=== PATIENT | male | born 1975 | race Caucasian/White ===

== ENCOUNTER 2017-07-17 20:28 | Emergency (ER) | payer MEDICAID ==
--- NOTE | 2017-07-17 20:46 | EDPHY ---
H & P Time Seen by Provider: 07/17/17 20:44 HPI/ROS: CHIEF COMPLAINT: "I'm going through a crisis" HISTORY OF PRESENT ILLNESS: 41-year-old homeless male arrives via police on an M1 hold. Patient states that he is going through a"crisis". States that he has been experiencing suicidal ideation without plan as well as seeing aliens, hearing voices telling him to hurt himself. He denies attempted self-injury. Denies alcohol or drug use. Denies methamphetamine use. Denies trauma. Denies fall. PRIMARY CARE PROVIDER: REVIEW OF SYSTEMS: A ten point review of systems was performed and is negative with the exception of the items mentioned in the HPI PAST MEDICAL & SURGICAL HISTORY: Possible schizophrenia history SOCIAL HISTORY: Homeless denies alcohol or drug use. Denies methamphetamine use. PHYSICAL EXAM (Prior to examination, patient consented to physical exam, hands were washed and my usual and customary physical exam procedures followed) 1) GENERAL: poorly kept, foul-smelling,, alert and oriented. Appears to be in no acute distress. 2) HEAD: Normocephalic, atraumatic 3) HEENT: Pupils equal, round, reactive to light bilaterally. Sclera anicteric. 4) NECK: Full range of motion, no meningeal signs. 5) LUNGS: Clear auscultation bilaterally, no wheezes, no rhonchi, no retractions. 6) HEART: Regular rate and rhythm, no murmur, no heave, no gallop. 7) ABDOMEN: No guarding, no rebound, no focal tenderness, negative McBurney's, negative Thakur's, negative Rovsing's, negative peritoneal sign, 8) MUSCULOSKELETAL: Moving all extremities, no focal areas of tenderness, no obvious trauma. No peripheral edema or discoloration. 9) BACK: No CVA tenderness, no midline vertebral tenderness, no fluctuance, no step-off, no obvious trauma, no visual or palpable abnormality. 10) SKIN: No rash, no petechiae. 11) Psychiatric: Patient is oriented X 3, there is no agitation. DIFFERENTIAL DIAGNOSIS: In no particular include but limited to psychosis, navi, suicidal ideation, depression, homicidal ideation (Rubio,D Lucy) Constitutional: Initial Vital Signs Temperature (C) 37.0 C 07/17/17 20:49 Heart Rate 116 H 07/17/17 20:49 Respiratory Rate 20 07/17/17 20:49 Blood Pressure 116/87 H 07/17/17 20:49 O2 Sat (%) 98 07/17/17 20:49 O2 Delivery Mode Room Air Allergies/Adverse Reactions: No Known Allergies Allergy (Unverified 07/17/17 22:23) Home Medications: Medication Instructions Recorded Celexa 07/17/17 Risperdal 07/17/17 Ritalin 10mg (*) 07/17/17 Medical Decision Making ED Course/Re-evaluation: This patient was turned over to me at change of shift. This patient has been once again assessed by the psychiatric team including Dr. Steve teague. They have decided to drop the hold and discharge the patient. (Robb Crockett) 8:46 p.m.: Patient is on M1 hold. He is calm and cooperative at this time. 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 11pm : Care turned over to Dr. Ray Foss (Tete Bergeron) Other Provider: 2300 care assumed from RON Bergeron pending mental health evaluation. 0700 patient signed out to Dr. Crockett pending mental health evaluation. No issues during my care this patient overnight. (Navin Foss) - Data Points Laboratory Results: Laboratory Results 07/17/17 20:50 07/17/17 20:50 Departure - Departure Disposition: Home, Routine, Self-Care Clinical Impression: Acute psychosis Condition: Good Instructions: Psychotic Disorder (ED) Referrals: NONE *PRIMARY CARE P,. [Primary Care Provider] - As per Instructions
[2017-07-17 22:19] LABS: PLATELET COUNT 176 10^3/uL (150-400)
[2017-07-18 09:41] VITALS: BP 132/80
== END 2017-07-18 09:50 | disposition home or self-care (01) ==
DX: F23 Brief psychotic disorder (principal)
CPT/HCPCS: 80305; G0480

== ENCOUNTER 2017-07-21 20:02 | Emergency (ER) | payer MEDICAID ==
[2017-07-21] MEDS ORDERED: OLANZapine DISINTEGR 10 MG TAB PO ONE (20:17)
[2017-07-21 20:20] LABS: PLATELET COUNT 161 10^3/uL (150-400)
--- NOTE | 2017-07-21 20:32 | EDPHY ---
H & P Stated Complaint: M1 hold - Personal History Current Tetanus/Diphtheria Vaccine: Unsure Current Tetanus Diphtheria and Acellular Pertussis (TDAP): Unsure - Medical/Surgical History Hx Asthma: No Hx Chronic Respiratory Disease: No Hx Diabetes: No Hx Cardiac Disease: No Hx Renal Disease: No Hx Cirrhosis: No Hx Alcoholism: No Hx HIV/AIDS: No Hx Splenectomy or Spleen Trauma: No Other PMH: psych, denies other - Social History Smoking Status: Current every day smoker Time Seen by Provider: 07/21/17 20:05 HPI/ROS: CHIEF COMPLAINT: Patient has no complaints. He is requesting a shower, a meal , and bed. HISTORY OF PRESENT ILLNESS: This is a 41-year-old male with an apparent history of psychiatric disease (he tells me that he was admitted to [facility] earlier this year) who is brought to the emergency department on an M1 hold by the police. Reportedly he was walking into traffic and was also aggressive with a shopkeeper. This patient was evaluated here on July 18 and at that time it was not felt that he required inpatient treatment. When I speak with him he tells me that he calls the police frequently in an effort to obtain help with housing and meals. He denies suicidality, homicidality, visual or auditory hallucinations, navi, depression, and substance abuse. He admits to drinking occasionally. He smokes cigarettes. He was previously living in [place]. REVIEW OF SYSTEMS: A ten point review of systems was performed and is negative with the exception of the items mentioned in the HPI. Past medical history: Denies Past surgical history: Denies Social history: He is homeless. He smokes cigarettes daily, 1 pack per day. He drinks alcohol on occasion. He denies the use of illicit drugs. General Appearance: Alert. Vital signs reviewed. Heart rate 105 at triage. Disheveled, poor personal hygiene. Eyes: Pupils equal and round, no conjunctival injection, no discharge. Anicteric. ENT, Mouth: Mucous membranes are moist, no oropharyngeal erythema or edema. Neck: No lymphadenopathy. Respiratory: Lungs are clear to auscultation; no wheezes, rales, or rhonchi. Cardiovascular: Regular rate and rhythm. Not tachycardic at the time of my exam. Gastrointestinal: Abdomen is soft and nontender, no masses or organomegaly. Skin: Warm and dry, no rashes on exposed skin. Neurological: Alert and oriented but gives the month as May. Moving all four extremities easily and equally. PIETRO. Facial expression symmetric. Tongue midline. Psychiatric: Normal affect. (Zamzam Gallardo) Constitutional: Initial Vital Signs Temperature (C) 37.1 C 07/21/17 20:10 Heart Rate 105 H 07/21/17 20:10 Respiratory Rate 16 07/21/17 20:10 Blood Pressure 131/99 H 07/21/17 20:10 O2 Sat (%) 97 07/21/17 20:10 O2 Delivery Mode Room Air Allergies/Adverse Reactions: No Known Allergies Allergy (Unverified 07/21/17 20:06) Home Medications: Medication Instructions Recorded Celexa 07/17/17 Risperdal 07/17/17 Ritalin 10mg (*) 07/17/17 Medical Decision Making ED Course/Re-evaluation: 0111: Patient has been evaluated by mental health. They do not feel that he is a threat to himself or anybody else. He is not suicidal homicidal. Did not feel that he would benefit from inpatient psychiatric hospitalization however they are requesting that we keep him here tonight in the emergency room and be discharged safely in the morning. (Rafat Cobos) 41-year-old homeless male with an apparent history of psychiatric disease. He tells me that he he has had a psychiatric hospitalization. His medical records indicate that he has been prescribed Celexa and Risperdal, which he states he does not take. At the time of my evaluation he denies suicidality or homicidality. He states that he is not having visual or auditory hallucinations. He expresses a desire for shower, a meal, and a place to sleep. Although I think that he likely does have psychiatric illness, he appears to be malingering. Blood alcohol is 0.124. Will await sobriety and TLC evaluation. (Zamzam Gallardo) Differential Diagnosis: I considered a differential diagnosis that includes but is not limited to malingering, psychosis, depression, suicidality, and homicidality. (Zamzam Gallardo) - Data Points Laboratory Results: Laboratory Results 07/21/17 20:10 07/21/17 20:10 07/21/17 20:10 Sodium 143 mEq/L mEq/L (135-145) Potassium 4.1 mEq/L mEq/L (3.3-5.0) Chloride 106 mEq/L mEq/L (97-110) Carbon Dioxide 21 mEq/l L mEq/l (22-31) Anion Gap 16 mEq/L mEq/L (8-16) BUN 9 mg/dL mg/dL (7-23) Creatinine 0.8 mg/dL mg/dL (0.7-1.3) Estimated GFR > 60 Glucose 95 mg/dL mg/dL (70-100) Calcium 9.1 mg/dL mg/dL (8.5-10.4) Ethyl Alcohol 124 mg/dL H mg/dL (0-10) Medications Given: Discontinued Medications Olanzapine (Zyprexa Zydis) 10 mg PO EDNOW ONE Stop: 07/21/17 20:18 Last Admin: 07/21/17 22:51 Dose: Not Given Departure - Departure Disposition: Home, Routine, Self-Care Clinical Impression: Homelessness Alcohol intoxication Qualifiers: Complication of substance-induced condition: uncomplicated Qualified Code(s): F10.920 - Alcohol use, unspecified with intoxication, uncomplicated Condition: Good Instructions: Alcohol Intoxication (ED), Abuse of Alcohol (ED) Referrals: NONE *PRIMARY CARE P,. [Primary Care Provider] - As per Instructions
[2017-07-22 05:50] VITALS: BP 143/74
== END 2017-07-22 05:53 | disposition home or self-care (01) ==
DX: F10.920 Alcohol use, unspecified with intoxication, uncomplicated (principal); F17.210 Nicotine dependence, cigarettes, uncomplicated; Z59.0 Homelessness
CPT/HCPCS: 80305; G0480

== ENCOUNTER 2017-08-31 18:10 | Inpatient (IN) | payer MEDICAID, OTHER ==
--- NOTE | 2017-08-31 18:24 | EDPHY ---
H & P Smoking Status: Current every day smoker Time Seen by Provider: 08/31/17 18:23 HPI/ROS: CHIEF COMPLAINT: Hearing voices, on M1 hold HISTORY OF PRESENT ILLNESS: Patient arrives on M1 hold by police. He told them that he was hearing voices telling them that he is the Governor, and the police radios block voices. He was suicidal to the police but denies it to me. He told him he was going to"set himself on fire."The patient to me continues to talk about aliens chasing him and voices in his head chasing him around. Patient denies any acute medical complaints REVIEW OF SYSTEMS: Eye: no change in vision ENT: no sore throat Cardiac: no chest pain or syncope Pulmonary: no cough or SOB Abdomen: no vomiting, diarrhea, abdominal pain Musculoskeletal: no back pain Skin: no rash Neuro: no headache Constitutional: no fever : no urinary symptoms A comprehensive 10 point review of systems is otherwise negative aside from elements mentioned in the history of present illness. PAST MEDICAL HISTORY: Previous ED visits for psychotic disorder, diagnosis unclear Social history: Alcohol and tobacco user General Appearance: Alert and conversant, cooperative. Eyes: No scleral icterus. ENT, Mouth: Normal mucous membranes. Respiratory: Normal respiratory effort, breath sounds equal, lungs are clear to auscultation. Cardiovascular: Regular rate and rhythm. Gastrointestinal: Abdomen is soft and non tender. Neurological: Alert, face symmetric, normal motor and sensory in extremities. Skin: Warm and dry, no rashes. Musculoskeletal: No peripheral edema. Psychiatric: The patient is rambling thoughts and is delusional about hearing voices and that he is the Governor. Denies suicidal or homicidal ideation. Emergency Department course/MDM: On a psychiatric hold by police. Screening labs ethanol and mental health evaluation. 1949: Drug screen is amphetamine positive. Will likely be eligible for evaluation tomorrow morning at 6:20 a.m. Tomorrow. Signed out to Dr. Whiting at 2100 with plan as outlined above. (Jordan Valencia) Constitutional: Initial Vital Signs Temperature (C) 36.8 C 08/31/17 18:14 Heart Rate 81 08/31/17 18:14 Respiratory Rate 16 08/31/17 18:14 Blood Pressure 138/83 H 08/31/17 18:14 O2 Sat (%) 97 08/31/17 18:14 O2 Delivery Mode Room Air Allergies/Adverse Reactions: No Known Allergies Allergy (Unverified 08/31/17 18:14) Home Medications: Medication Instructions Recorded NK [No Known Home Meds] 09/01/17 Medical Decision Making Differential Diagnosis: Differential considered including but not limited to schizophrenia, bipolar disorder, alcohol or drug intoxication, metabolic problem (Jordan Valencia) Other Provider: 6:36 a.m.- The patient has been stable throughout my shift. He is awaiting psychiatric evaluation which is delayed because of his urine toxicology positive for amphetamines. He will be signed out to the oncoming provider Dr. Adamson at change of shift (Mignon Pearce) Patient has been accepted for transfer to by Dr. Jorge. (Tod Diego) 11:00 p.m. Care transferred to Dr. Pearce, pending evaluation in the morning. ( Chandra Whiting) I assumed care of this patient at 7:[address] Pearce. Patient had a urine tox which was positive for methamphetamines at 6:00 p.m. on August 31. He will be evaluated this morning by [facility]. Rohan from [facility] has evaluated patient, and recommended the patient be admitted to the hospital. Patient has previously been treated with Zyprexa for psychosis. 10 mg of Zyprexa was administered. Patient was admitted to [address] [place] [address]. (Maki Adamson) - Data Points Laboratory Results: Laboratory Results 08/31/17 18:34 08/31/17 18:34 Medications Given: Olanzapine (Zyprexa Zydis) 10 mg PO [facility] Stop: 02/28/18 20:59 Last Admin: 09/02/17 21:41 Dose: 10 mg Discontinued Medications Olanzapine (Olanzapine) 20 mg PO ONCE ONE Stop: 09/01/17 11:31 Last Admin: 09/01/17 11:59 Dose: Not Given Olanzapine (Olanzapine) 10 mg PO ONCE ONE Stop: 09/01/17 11:32 Last Admin: 09/01/17 11:44 Dose: 10 mg Departure - Departure Disposition: [facility] IP Clinical Impression: Acute psychosis, Amphetamine abuse Condition: Good
[2017-08-31 18:48] LABS: PLATELET COUNT 176 10^3/uL (150-400)
[2017-09-01] MEDS ORDERED: OLANZapine 5 MG TAB PO ONE ×2 (11:30→11:31)
--- NOTE | 2017-09-01 15:06 | ASMTTCLDSP ---
TLC Discharge Disposition Disposition: Answers: Admit Discharge Concerns/Recommendations: Notes: In consultation with [facility] ED physician, Jordan Valencia MD, and on-call psychiatrist, Jovon Jorge MD, both concurred that pt appeared to meet 27-65 criteria requiring psychiatric hospitalization as pt appears does appear to be an imminent risk of harm to self and is gravely disabled due to a mental illness condition. Was patient given the Answers: Yes Inpatient Behavioral Health Prohibited Belongings List while in the ED? For inpatient Jovon Jorge MD admission, the following psychiatrist agreed to accept patient for admission to Behavioral Health ([facility]): Date and time M1 hold 08/31/2017 05:17 PM vacated (time format is hh:mm): Type of Hold: Answers: M1/72-hour Hold Hold initiated by: Answers: Police Date Signed: 09/01/2017 03:05 PM Electronically Signed By:Tod Black
--- NOTE | 2017-09-01 15:39 | ASMTTLCEVL ---
TLC Evaluation - Basic Information Evaluation Start Date and 09/01/2017 02:00 PM Time Hospital Status Answers: M1 Hold 72-hr M1 Hold Start Date 08/31/2017 05:17 PM and Time Patient statement Notes: "Trying to get away from people...pointing laser pointers at my crotch". Pt reported that his persuers were child molesters. 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 Narrative Notes: Pt is a 41 YO male, never , no children, unemployed Per [facility] report the PT called 911 yesterday reporting suicidal thoughts; Pt is a very poor historian, primarily tue to lose associations and his preoccupation with paranoid and grandiose delusions. Pt says he came to [place] 1 week ago from [place] "trying to get away from people" who pt says " were pointing laser pointers at my crotch". Pt reported that his pursuers were child molesters. 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 Pt says he's not sleeping very well b/c "They're trying to keep me awake using x-band radar" and says "they" follow pt around in "in an SUV like spaceship". Pt says he's anti-christain, "I don't do the Festus thing. I'm anti-Cy." Per ED report HISTORY OF PRESENT ILLNESS: Patient arrives on M1 hold by police. He told them that he was hearing voices telling them that he is the Governor, and the police radios block voices. He was suicidal to the police but denies it to me. He told him he was going to"set himself on fire."The patient to me continues to talk about aliens chasing him and voices in his head chasing him around. The patient is rambling thoughts and is delusional about hearing voices and that he is the [place]. Denies suicidal or homicidal ideation. The pts urine toxicology positive for amphetamines. Per M1 Hold R/O responded to gas station at [place] for male ([place]) who was suicidal, wanted to set himself on fire. Remington stated that he hears multiple voices and that he is the governor. Remington stated that the police radios block the voices in his head. Remington stated that he is suicidal and needs help. Diagnosis History Notes: SCHIZOPHRENIA 295.90 (F20.9) - From [facility] 2016 Prior suicide attempts Notes: PT reports 2 or 3 attempts Prior hospitalizations Notes: [facility] 2016 (Observation Area for 3 days) [facility] October 2016 [facility] Responses Notes: Per [facility] records from 2016 stay. Pt was given 20mg of zyprexa a day and stabilized. History of violence Notes: None reported Therapist: None Psychiatrist: None Medications (name, dosage, route, freq uency) Notes: Pt reported he is has been perscribed ritalin and celexa but doestn' have current perscriptions Per [facility] records from 2016 stay. Pt was given 20mg of zyprexa a day and stabilized. Allergies/Reaction Notes: No Known Allergies Sleep Notes: Poor Appetite Notes: Poor Medical/Surgical history Notes: None reported Substance use history (frequency, intensity, his tory, duration) Notes: Unable to assess substance use due to pt's psychosis - previous [facility] admission was negative for cocaine or amphetamine but was positive for etoh; previous [facility] admission had pt possitive for cocaine; current [facility] ED visit pt is positive for Amphetamine in utox; Family composition Notes: None reported; I wasn't raised by anyone; pt denied having any siblings Family psychiatric/substance abuse history Notes: ETOH Abuse on mothers side, drank while . 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 Abuse concerns Answers: Past Victim Marital status/children Notes: Never with no children Living situation Notes: Transient / Homeless Sexual history/orientation Notes: Heterosexual not sexually active Peer support/family strengths Notes: None reported, pt has had successful treatment with zyprexa. Education level/history Notes: Pt repored he never attended school. Work history Notes: Unemployed Notes: None reported Legal Notes: None reported Anglican/Spiritual Notes: Pt denied being spiritual or religous Leisure Notes: I like BBQ Collateral Notes: Obtained from [facility] report (See Fax attached), ED records, and M1 Hold TLC Evaluation - Mental Status Exam Appearance: Answers: Unkempt Disheveled Eye Contact: Answers: Intermittent Mood: Answers: Depressed Affect: Answers: Appropriate Blunted Calm Distracted Fearful Behavior: Answers: Appropriate Cooperative Speech: Answers: Relevant Irrelevant Illogical Clear Coherent Dramatic Excessive Flight of Ideas Grandiose Loose Associations Nonsensical Rambling Thought Process: Answers: Disorganized Disoriented Distracted Flight of Ideas Loose Associations Paranoid Insight: Answers: Poor Judgement: Answers: Poor Manic Signs/Symptoms Answers: Distractibility Impulsivity Mood Swings Pressured Speech Racing Thoughts Depression Answers: Flat Affect Signs/Symptoms: Hopelessness Withdrawn Hallucinations: Answers: Auditory Command Delusions: Answers: Being Controlled Erotic/Stalking Grandiose Ideas of Reference Paranoid Ideation Persecution Anglican/Spiritual Current Stage of Change Answers: Precontemplation Pt reported to have Answers: Yes suicidal/self-injuring ideation/behavior? Pt reported to be making Answers: Yes suicidal/self-injuring threats? Pt reported to have Answers: No aggression/assault ideation/behavior? Pt reported to be making Answers: No aggression/assault threats? Ideation/behavior is Answers: Yes chronic? Patient has a specific Answers: Yes plan? Pt has access to means to Answers: Yes execute the plan? Ideation involves Answers: Yes serious/lethal intent? Ideation has Answers: Yes delusional/hallucinatory content? History of Answers: No aggressive/assaultive ideation, behavior, or threats? History of serious Answers: No physical harm to self/others while in treatment setting? TLC Evaluation - Suicide/Homicide Risk Suicide Risk Factors: Answers: Agitation Alcohol/Heavy Drug Use Command Hallucinations Impulsivity Lack/Loss of Employment Psychotic Disorder Schizophrenia Single Unstable Living Situation Homicide/violence risk Answers: Command Hallucinations factors: Heavy Drug Use Paranoid Ideation Current Suicidal Answers: Yes Ideation? Current Suicidal Ideation Answers: Yes in the Past 48 Hours? Current Suicidal Ideation Answers: Yes in the Past Month? Suicide External Answers: None Protective Factors: Ranking of patient's Answers: Imminent suicidal risk: Ranking of patient's Answers: Low homicidal risk: TLC Evaluation - Wrap-up BDI Total Score: Unable to complete BSS Total Score: Unable to complete AXIS I Diagnosis (include DSM-V and ICD-10 codes), must also be entered in [employer], which is the source of truth. Notes: SCHIZOPHRENIA 295.90 (F20.9) Evaluation End Date and 09/01/2017 03:33 PM Time (HH:MM): Date Signed: 09/01/2017 03:38 PM Electronically Signed By:Tod Black
[2017-09-01] MEDS ORDERED: MAG HYDROX/AL HYDROX/SIMETH 30 ML UDCUP PO PRN (19:49)
[2017-09-01] MEDS ORDERED: LORazepam 1 MG TAB PO PRN (19:49)
[2017-09-01] MEDS ORDERED: MAGNESIUM HYDROXIDE 30 ML UDCUP PO PRN (19:49)
[2017-09-01] MEDS ORDERED: NICOTINE POLACRILEX 2 MG GUM B PRN (19:49)
[2017-09-01] MEDS ORDERED: ACETAMINOPHEN 325 MG TAB PO PRN (19:49)
[2017-09-01] MEDS: OLANZapine DISINTEGR 10 MG TAB PO SCH (20:31)
--- NOTE | 2017-09-02 14:00 | ASMTBHMTP ---
Master Treatment Plan Master Treatment Plan Answers: Impaired Reality for: Date: 09/02/2017 Diagnosis on Admission: Schizophrenia Expected length of stay: 3-5 Days Reason for admission: Notes: 41 year old male. Per [facility] report the pt. called 911 yesterday reporting suicidal thoughts. Patient's stated presenting problems: Notes: Don't know. Having mental problems Patient's goals for treatment: Notes: I don't know Patient's strengths: Notes: I don't know Identify supports outside of hospital: Notes: No Discharge criteria: Notes: Psychotic symptoms will be reduced or eliminated with return to baseline functioning in affect, thinking and behavior prior to discharge Initial disposition plan/considerations: Notes: I don't know. Master Treatment Plan Required Signatures Psychiatrist signature: Answers: Angel Ventura MD: RN on-shift signature: Answers: RN: Patient signature: Answers: Patient: Date Signed: 09/02/2017 01:59 PM Electronically Signed By:Guerda Bridges
[2017-09-02] MEDS ORDERED: OLANZapine 5 MG TAB PO PRN (14:01)
--- NOTE | 2017-09-02 14:42 | BAPA ---
[f rep st] ADMISSION PSYCHIATRIC ASSESSMENT DATE OF SERVICE: 09/02/2017 CHIEF COMPLAINT: "Trying to get away from people pointing lasers at my crotch." HISTORY OF PRESENT ILLNESS: The patient is a 41-year-old, man, never , no children, unemployed. According to [facility], who did the initial evaluation in the emergency department, the ana nt called 911 reporting suicidal thoughts. He was placed on an M-1 hold by police at a gas station o n [place], because he stated that he was hearing multiple voices and that he was the govern or. He also states that he was having suicidal thoughts with a plan to set himself on fire and neede d help. The patient came to [place] a week ago from [place], said he was, "trying to get away from pe ople." He said that the people who were pursuing him were child molesters. 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 When this MD met with the patient on the Inpatient Behavioral Health Services Unit along with t healthcare management, Guerda, the patient was lying in bed, extremely disheveled, malodorous, ill-kempt . He was wearing hospital scrubs, top and bottom. He was wrapped up in his sheets. He was extremel y irritable, labile. The patient became very agitated when he was addressed by his first name, Juan Diego morgan. He said that his name was [place]. When MD asked whether that was his first or last name, patient became quite volatile and angry and said "I'm just one person, I only have one name." When attem pted to ask the patient questions about his medical and mental health history, the patient repeated o agatha and over again, "I don't know, I don't know." The patient was a very unreliable historian, not f orthcoming with any details or information about his prior psychiatric care or his recent psychiatric symptoms. PAST MEDICAL HISTORY: The patient was at [facility] in September of 2016, also at [facility] in Oct, and at [facility] unknown time frame, but according to records from [facility], the patien t has not been hospitalized since 2017. The records also indicate the patient has made suicide attem pts in the past, but given the fact that he is unreliable historian, it is unclear whether or not to believe his report, and there were no medical records to verify this. In the past, the patient has b een on Zyprexa. Records from [facility] indicate that he was prescribed 20 mg Zyprexa daily. The patient has not been compliant with medications when he is not in the hospital. The patient reports that he has taken Ritalin and Celexa in the past, but there is no external evidence of this or sarah boration from medical records. ALLERGIES: The patient has no known drug allergies. CURRENT MEDICATIONS: The patient is not currently taking any medications because he has not been com pliant with outpatient care. It is believed that the last time he received any psychotropic medicati ons was while he was inpatient at [facility] and that was Zyprexa 20 mg daily in September of 2016. LABORATORY: Was done at [facility] ED. The patient had a white cell count of 4.76, hemoglobin 15.2, hematocrit 44.6, platelet count of 176. Sodium of 140, potassium 3.0, BUN of 6, creatinine 0.7, gluc ose 71, calcium 8.8. Tox screen was positive for amphetamines, negative for all other drugs of abuse . Salicylate and acetaminophen levels were both undetected. Ethyl alcohol level was less than 10. MEDICAL HISTORY: None reported. No prior surgeries were noted by the patient or in the [facility] eval. SOCIAL HISTORY: The patient is homeless, never , has no children. The patient is an unreliab le historian when it comes to personal information. He told the [facility] sewing machines salesperson that he had never atte nded school before, which seems unlikely. He also reports that he has previously been diagnosed with ADHD. The patient is not currently connected with any outpatient providers. There is no informatio n about family support or any type of social support system. FAMILY HISTORY: The patient did report that his mother was an alcoholic and drank while she was preg nant. No other information about family psychiatric history or any other substance abuse history in the family. SUBSTANCE USE HISTORY: A urine drug screen has shown up positive for multiple substances during diff erent hospitalizations. During this hospitalization, the patient was positive for amphetamine. [facility] r eport indicates that when he was admitted to [facility] in September of 2016, his urine drug screen w as negative for amphetamine, but was positive for alcohol. When he was admitted to [facility] in Oct, he was positive for cocaine and according to [facility] records, the patient has a history o f using marijuana. LEGAL HISTORY: The patient denies having any legal issues. MENTAL STATUS EXAM: This is an average height, well-developed, extremely disheveled, ill-kempt, jean carlos dorous man lying in bed, wearing hospital scrubs. He is alert and oriented x2. His affect is extrem arlen irritable and labile. His demeanor is argumentative. He does not make eye contact with the MD o r healthcare management. His speech rate is rapid and his volume is elevated. He denies feeling sad, hel pless, hopeless, worthless, and anxious. He denies any symptoms of psychosis, although he presents w ith paranoid delusions, extreme disorganized thought process. There are no symptoms of navi present . He does not have elevated or elated mood. He does not have increase in goal-directed activity or decreased need for sleep. He does not have racing thoughts. His thought process is disorganized and illogical. His insight and judgment are both significantly impaired. His intellectual function mendel ears to be below average, based upon his vocabulary, fund of knowledge, and educational history. IMPRESSION: 1. Schizophrenia by history. 2. Amphetamine use disorder, severe. 3. Alcohol use disorder, unknown severity. 4. Cannabis use disorder, unknown severity. 5. Cocaine use disorder, unknown severity. 6. Lack of social support, homelessness, transients, noncompliance with treatment, chronic polysubst ance use, financial, unemployed. PLAN: 1. Admit patient to the inpatient behavioral health services unit on [address] on an M-1 hold. 2. Monitor closely for safety. The patient is not currently exhibiting any unsafe behaviors. He is acting appropriately other than some infrequent outbursts. He denies any thoughts, plans, or intent s to hurt himself or anyone else. He is paranoid. 3. We will continue to monitor and observe the patient. It is possible that his acute psychotic sym ptoms are primarily related to amphetamine use disorder. We will treat the patient with Zyprexa, Zyd is 10 mg p.o. q.h.s., and hope that his lack of access to mood altering and psychosis-inducing substa nces while in a controlled environment will lead to remission of symptoms. 4. The patient has taken Zyprexa during his previous hospitalization at [facility] to good effect . We will continue this medication here. 5. Estimated length of stay is 3-5 days. It seems like in the past, the patient has been receiving his services only in the hospital and has not been connected with outpatient providers, although we w ill try to obtain collateral information and see whether or not he has been a client at [facility] or any o f the other community mental health clinics in the area. He will need to get connected with some pro viders after this discharge, although the likelihood of him following through with treatment is very low, based upon his previous behaviors. We will try to encourage him to access services wherever he will be residing, and a healthcare management will help to assist in getting him connected with housing reading hospital. /[id number]/MODL
--- NOTE | 2017-09-02 16:08 | BCON ---
[f rep st] BEHAVIORAL HEALTH CONSULTATION DATE OF CONSULTATION: 09/02/2017 REFERRING PHYSICIAN: Jovon Jorge MD REASON FOR REFERRAL: Medical clearance for inpatient behavioral health stay. HISTORY OF PRESENT ILLNESS: This patient was brought to the emergency department 2 days ago on an M1 hold by police. He had told police that he was hearing voices, telling him that he is the governor, and he had other delusions that he expressed. He told the police that he was suicidal and was going to set himself on fire. He was evaluated by the mental health team and admitted for further psychiatric care. Currently, he complains "every time I go sleep, they wake me up." He is otherwise without acute complaints, but he asks if it is dinnertime or snack time. PAST MEDICAL HISTORY: Schizophrenia. PAST SURGICAL HISTORY: He denies any history of surgeries. MEDICATIONS: Prior to admission, he was not taking any medications, though apparently there was a prior prescription for olanzapine. SOCIAL HISTORY: He is a smoker. He is a polysubstance abuser with documented use in the past of cocaine, as well as methamphetamine. He is homeless. FAMILY HISTORY: Could not be obtained. REVIEW OF SYSTEMS: Limited due to mild agitation. He denies cough or dyspnea. He is not in pain. PHYSICAL EXAM: VITAL SIGNS: Blood pressure is 113/69, heart rate is 67, respiratory rate is 14, oxygen saturation is 98% on room air, temperature is 36.4 degrees centigrade. His weight is 67.6 kg for a body mass index of 22. GENERAL: This is a well-nourished, well-developed, but unkempt and malodorous individual, dressed in a green hospital smock, agitated, but otherwise moderately cooperative and in no acute distress. HEENT: Extraocular movements are intact. Mucous membranes are moist. NECK: Supple. CARDIOVASCULAR/LUNGS: Could not be accomplished though he is not tachypneic. There are no retractions and he is not coughing. ABDOMEN: Grossly benign. EXTREMITIES: There is no cyanosis, clubbing, or edema. NEUROLOGIC: He is alert. He is agitated. Orientation was not checked. He moves all extremities. Cranial nerves 2-12 appear to be grossly intact. His gait is normal. He makes a sudden stop while walking and raises his arms in a motion as if to push someone away, though there is no one in front of him, and says "whoa." LABORATORY STUDIES: Drawn in the emergency department. CBC was overall normal. He had a slightly high mean platelet volume of no clinical significance. Basic metabolic profile showed a low potassium at 3, BUN was also low at 6. Otherwise, renal function and electrolytes were normal. Toxicology screen in the serum was negative for salicylates, acetaminophen, or ethyl alcohol. Toxicology in the screen was non-negative for amphetamines, but was otherwise negative for substances of abuse. ASSESSMENT/RECOMMENDATIONS: 1. Mental health issues pending further evaluation and management per Psychiatry and the mental health team. 2. Tobacco dependence. He was encouraged to stop smoking. 3. Hypokalemia. Query whether this might have to do with a hyperadrenergic state. It was mild. If he shows normal oral food and fluid intake, I doubt that there is a need to repeat the blood test and I will not order this at present. 4. Amphetamine abuse. He might benefit from specific substance abuse counseling. I see no medical contraindications to this patient's continued stay on the inpatient behavioral health unit or to any psychiatric medications or procedures. Thank you very much for including me in the care of this patient. Please do not hesitate to contact me or the Hospitalist service should there be need for further medical evaluation. /[id number]/MODL MTDD
--- NOTE | 2017-09-02 16:17 | PDMN ---
Medical Necessity Medical necessity: Pt meets IP criteria per & OTONIEL B010-IP; est los >2 mn for eval/tx of acute psychotic symptoms r/t amphetamine use; pt on M1 hold; admit for safety, stabilization & med management; hx schizophrenia, homelessness & polysubstance abuse
[2017-09-02] MEDS: OLANZapine DISINTEGR 10 MG TAB PO SCH (21:41)
--- NOTE | 2017-09-03 13:45 | ASMTCMCOM ---
CM Note CM Note Notes: Pt. was laying in bed with his eyes open when CC approached. Pt. stated "I don't know" when asked how he was doing. Pt. stated he keeps getting woken up by staff. Pt. stated "what are you stupid?" to CC. When CC asked about SI, pt. stated "I don't know you just woke me up". CC ended conversation due to pt. demeanor. Pt. presents as disorganized and malodorous. Staff report pt. sleeping at least 12 hours and being medication compliant. Date Signed: 09/03/2017 01:44 PM Electronically Signed By:Guerda Bridges
--- NOTE | 2017-09-03 16:42 | SOAPPROG ---
SOAP Progress Note Assessment/Plan: Assessment: 41 yo man with h/o schizophrenia and polysubstance dependence. It's likely that his psychotic sxs are caused or significantly exacerbated by his drug use. In controlled environment he has not exhibited the same severity of sxs that led to his contact with police and transfer to ED on 09/01/17. Plan: 09/03/17 16:39 1. Patient still irritable and refusing to participate in tx, but no s/s of acute psychotic sxs (paranoia and delusions) prior to admission. 2. Patient slept 12+ hrs last night and this AM. He only came out of room for meals. 3. Continue Olanzapine 10mg QHS for psychotic sxs & mood stabilization. Patient denies any SE's, no evidence of slowing, rigidity or abnormal movements. 4. Place on [facility]. Subjective: Met with patient, reviewed chart and d/w staff. Patient remains in room most of the day. He slept 12 hrs overnight and has been asleep almost all morning. He left his room for breakfast and lunch only. He refuses to participate in any groups or milieu activities. He denies SI/HI. Objective: Vital Signs Temp Pulse Resp BP Pulse Ox 36.4 C 68 16 118/80 96 09/03/17 06:00 09/03/17 06:00 09/03/17 06:00 09/03/17 06:00 09/03/17 06:00 MSE: Affect: Irritable Mood: "OK" TP: Linear TC: Denies SI/HI, no AH/VH Insight/Judgment: Poor - Time Spent With Patient Time Spent With Patient: 15" - Pending Discharge Pending Discharge Within 24 Hours: No Pending Discharge Within 48 Hours: No ICD10 Worksheet Patient Problems: Problems Problem Status Onset Acute psychosis Acute Amphetamine abuse Acute
[2017-09-03] MEDS: OLANZapine DISINTEGR 10 MG TAB PO SCH (21:26)
--- NOTE | 2017-09-04 15:39 | SOAPPROG ---
SOAP Progress Note Assessment/Plan: Assessment: Unspecified psychosis. Substance-induced psychosis. Unable to currently determine if patient has underlying psychiatric disorder due to recent methamphetamine use. Compared to initial admission notes, slight improvement noted; less disorganized (see subjective/objective note). Patient is not safe to discharge at this time as patient continues to exhibit signs of psychosis. Patient requires continued inpatient care because of current psychosis, and requires inpatient level of care due to being gravely disabled due to mental illness. Patient could benefit from continued inpatient hospitalization for crisis stabilization, safety, and medication evaluation. Plan: Review psychotropic medication treatment informed consent and recommendations. After reviewing options, risk and benefits, patient agrees to continue current medications with the following changes. No medication changes at this time as more time is needed to determine ongoing tolerability and efficacy. Plan is to continue to observe patient for response and side effects from medications, and ongoing monitoring and evaluation. Next steps are for patient to meet with direct care professional to plan a safe discharge plan and establish outpatient services for ongoing treatment. Consider discharge Monday if patient is in stable condition, safe, and has a safe discharge plan. PSYCHOTROPIC MEDICATION TREATMENT INFORMED CONSENT and RECOMMENDATIONS: Review nature of condition, diagnosis, and prognosis. Review nature and purpose of psychotropic medication treatment. Review type of psychotropic medications being ordered. Review risk and benefits of psychotropic medication treatment. Review probable length of time patient will need to take medications. Review risk and benefits of not undergoing psychotropic medication treatment. Review alternative treatments to psychotropic medications. Review psychotropic medications contraindications, drug-drug interactions, side effects, and importance of reporting any side effects to a psychiatric provider or nurse during inpatient hospitalization, and upon discharge to patients psychiatric outpatient provider, primary care provider, or other health respiratory care assistant. Review importance of asking a nurse, psychiatric provider, or primary care provider any questions or problems concerning the psychotropic medications. Verify patient understands the information that has been provided, and understands, accepts, and agrees to psychotropic medications. Review patients safety plan and importance of patient to report to staff while hospitalized if patient is ever a danger to self/others, or unable to care for self, and upon discharge, the importance for patient to contact [facility] [place] [facility] or 1, or go to the nearest emergency room, if patient is ever a danger to self/others, or unable to care for self. Recommend that upon discharge patient establish medication management treatment with a psychiatric provider, establishes routine therapy appointments, and follow-up with primary care provider. Verify patient understands and agrees to these recommendations. 09/04/17 15:46 Subjective: Following up with patient for evaluation of psychosis and safety. When asked patient if he has improved since admission, patient states, "Yep, just trying to get some rest." Patient expresses no current psychiatric symptoms. Patient states he might take a shower later today. Objective: Vital Signs Temp Pulse Resp BP Pulse Ox 36.7 C 51 L 16 116/72 97 09/04/17 06:00 09/04/17 06:00 09/04/17 06:00 09/04/17 06:00 09/04/17 06:00 NURSING REPORT: Consulted with nursing for update on patients progress in treatment. Nurses report patient is not engaged in treatment, is not attending groups, slept 12 hours last night and has been in room most of the day sleeping , expresses the following psychiatric symptoms: none, exhibits the following psychiatric symptoms: disorganized, withdrawn, diminished emotional expression, is eating all meals, is taking medications as prescribed with no report of side effects, with no S/S of EPS/akathisia, and denies SI/HI, A/V hallucinations. Nurses report patient has not showered since admission. [employer] UPDATE: working on setting-up outpatient appointments with P and referrals to homeless shelters in surrounding area UPDATE: Patient has spent majority of the day in his room sleeping; potentially withdrawal from recent methamphetamine use. Patient is not attending to all ADLsnotably has not bathed/showered since his admission. The patient is a well-nourished male looking older than chronological age. Attire is appropriate and dress is hospital garb, and is disheveled. Grooming status is inappropriate and disheveled, and malodorous. Ambulation is independent. Gait is normal and coordinated. Posture is normal. Eye contact is inappropriate and avoidant. Motor activity is appropriate. Attitude is uncooperative. Patient appears disinterested, irritated by interview questions, and does not relate well to this interviewer. Language production is unspontaneous. Rate is hesitant. Latency of response is prolonged. Monosyllabic responses. Patient reports mood as okay euthymic, with constricted incongruent diminished emotional affect. Patients thought process is non-linear and illogical. Patient does not report suicidal/homicidal thoughts, ideas, or plans. Patient denies auditory, visual hallucinations. Patient denies delusions. Patient does not appear to be attending to internal stimuli. Patients attention and concentration are poor. Patient is oriented to person, place, time. Patients insight is poor. Patients judgment is poor. Patient reports taking medications as prescribed. Patient does not report undesirable side effects from the medications. Patient slept 12 hours and has been in his room sleeping the majority of the day. Patient reports appetite as good, and reports eating all meals. - Time Spent With Patient Time Spent With Patient: 15 minutes, met with patient individually. - Pending Discharge Pending Discharge Within 24 Hours: No Pending Discharge Within 48 Hours: No ICD10 Worksheet Patient Problems: Problems Problem Status Onset Acute psychosis Acute Amphetamine abuse Acute
[2017-09-04] MEDS: OLANZapine DISINTEGR 10 MG TAB PO SCH (20:07)
--- NOTE | 2017-09-05 09:02 | SOAPPROG ---
SOAP Progress Note Assessment/Plan: Assessment: Unspecified psychosis. Substance-induced psychosis. Unable to currently determine if patient has underlying psychiatric disorder due to recent methamphetamine use. Compared to initial admission notes, improvement noted ( see subjective/objective note). Patient could benefit from continued hospitalization for observation for safety and medication evaluation. Plan: Review psychotropic medication treatment informed consent and recommendations. After reviewing options, risk and benefits, patient agrees to continue current medications with the following changes. No medication changes at this time as more time is needed to determine ongoing tolerability and efficacy. Plan is to continue to observe patient for response and side effects from medications, and ongoing monitoring and evaluation. Next steps are for patient to meet with child care giver to plan a safe discharge plan and establish outpatient services for ongoing treatment. Consider discharge today or Monday if patient is in stable condition, safe, and has a safe discharge plan. PSYCHOTROPIC MEDICATION TREATMENT INFORMED CONSENT and RECOMMENDATIONS: Review nature of condition, diagnosis, and prognosis. Review nature and purpose of psychotropic medication treatment. Review type of psychotropic medications being ordered. Review risk and benefits of psychotropic medication treatment. Review probable length of time patient will need to take medications. Review risk and benefits of not undergoing psychotropic medication treatment. Review alternative treatments to psychotropic medications. Review psychotropic medications contraindications, drug-drug interactions, side effects, and importance of reporting any side effects to a psychiatric provider or nurse during inpatient hospitalization, and upon discharge to patients psychiatric outpatient provider, primary care provider, or other health transitions rn care coordinator. Review importance of asking a nurse, psychiatric provider, or primary care provider any questions or problems concerning the psychotropic medications. Verify patient understands the information that has been provided, and understands, accepts, and agrees to psychotropic medications. Review patients safety plan and importance of patient to report to staff while hospitalized if patient is ever a danger to self/others, or unable to care for self, and upon discharge, the importance for patient to contact [facility] or [facility], or go to the nearest emergency room, if patient is ever a danger to self/others, or unable to care for self. Recommend that upon discharge patient establish medication management treatment with a psychiatric provider, establishes routine therapy appointments, and follow-up with primary care provider. Verify patient understands and agrees to these recommendations. 09/05/17 09:01 Subjective: Following up with patient for evaluation of psychosis and safety. When asked patient if he was using drugs prior to his hospitalization, patient states, " Was using crystals, intravenously, just enough to stay up. Started hearing voices and hearing things so I went to the hospital." Patient request place to stay after discharging and responds well when this RESOURCE TECHNICIAN states will provide resources for homeless shelters in the area and outpatient psychiatric services. Objective: Vital Signs Temp Pulse Resp BP Pulse Ox 36.6 C 57 L 14 108/71 98 09/05/17 06:00 09/05/17 06:00 09/05/17 06:00 09/05/17 06:00 09/05/17 06:00 Laboratory Results 09/05/17 06:30 NURSING REPORT: Consulted with nursing for update on patients progress in treatment. Nurses report patient is not engaged in treatment, is not attending groups, slept 10 hours last night and was in his room sleeping most of the day yesterday; expresses the following psychiatric symptoms: none, exhibits the following psychiatric symptoms: withdrawn, diminished emotional expression, is eating all meals, is taking medications as prescribed with no report of side effects, with no S/S of EPS/akathisia, and denies SI/HI, A/V hallucinations. Nurses report patient did shower yesterday and is attending to his ADLs. 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 Patient is attending to all ADLs and did shower since yesterday. The patient is a well-nourished male looking older than chronological age. Attire is appropriate and dress is hospital garb, and is disheveled. Grooming status is inappropriate and disheveled, and malodorous. Ambulation is independent. Gait is normal and coordinated. Posture is normal. Eye contact is inappropriate and avoidant. Motor activity is appropriate. Attitude is cooperative. Patient appears attentive and relates well to this interviewer. Language production is spontaneous. R/R/V normal. Patient reports mood as okay euthymic , with constricted incongruent diminished emotional affect. Patients thought process is linear and logical. Patient does not report suicidal/homicidal thoughts, ideas, or plans. Patient denies auditory, visual hallucinations. Patient denies delusions. Patient does not appear to be attending to internal stimuli. Patients attention and concentration are adequate. Patient is oriented to person, place, time, and situation. Patients insight is adequate. Patients judgment is fair. Patient reports taking medications as prescribed. Patient does not report undesirable side effects from the medications. Patient slept 10 hours and has been in his room sleeping the majority of the day yesterday. Patient reports appetite as good, and reports eating all meals. - Time Spent With Patient Time Spent With Patient: 15 minutes, met with patient individually. - Pending Discharge Pending Discharge Within 24 Hours: Yes Pending Discharge Within 48 Hours: No Pending Discharge Date: 09/06/17 Pending Discharge Time: 11:00 ICD10 Worksheet Patient Problems: Problems Problem Status Onset Acute psychosis Acute Amphetamine abuse Acute Substance-induced psychotic disorder Acute
[2017-09-05] MEDS ORDERED: OLANZapine DISINTEGR 5 MG TAB PO PRN (15:43)
[2017-09-05] MEDS: OLANZapine DISINTEGR 10 MG TAB PO SCH (20:37)
[2017-09-06 06:43] VITALS: BP 112/67
--- NOTE | 2017-09-06 12:19 | ASMTBHDC ---
Notes Note: Notes: CC tried to walk client over to [facility] for intake appointment/follow up. Client refused to go or participate with [facility]. Client noted, "I just want to go to the long-term." CC already called for client ([facility]) as well as printed out a bus map/list and provide a bus ticket. Client was escalated off of the unit and security was able to re-direct client, etc. and get him to the nearest bus stop in order to get to the long-term. Date Signed: 09/06/2017 12:18 PM Electronically Signed By:Temo Morrison
--- NOTE | 2017-09-06 12:49 | BDS ---
[f rep st] BEHAVIORAL HEALTH DISCHARGE SUMMARY REASON FOR ADMISSION: From the ED note dated 08/31/2017, the patient arrived on an M1 hold by police to the ER. He told police he was hearing voices, the voices telling him that he was the governor. The patient made suicidal threats to the police, but denied it to the ED staff. The police reported that patient told them he was going to "set himself on fire." The patient was talking about aliens chasing him and the voices in his head chasing him around while at the ER. The patient denied any acute medical complaints in the ER. The patient's UDS at time of admission was positive for amphetamines. The patient did report to this AVIATION ORDNANCE OFFICER that he was injecting crystals for several days prior to his admission. The patient was admitted involuntary on an M1 hold due to being gravely disabled. The patient was admitted for safety crisis stabilization and medication management. ADMITTING DIAGNOSES: 1. Acute psychosis. 2. Amphetamine abuse. ADMISSION PHYSICAL EXAM: The patient was seen by Dr. Serrano on 09/02/2017, for an internal medicine consultation. The patient was seen for medical clearance for inpatient Behavioral Health stay. Dr. Serrano reported he saw no medical contraindications to the patient's continued stay on the inpatient behavioral health unit or to any psychiatric medications or procedures. For further details, please refer to Dr. Serrano's note. LABORATORY DATA: Admission labs from the emergency department, CBC was overall normal. The patient had a slightly elevated mean platelet volume of no clinical significance. Basic metabolic profile showed a low potassium at 3. BUN was also low at 6. Otherwise, renal function and electrolytes were normal. Toxicology screen in the serum was negative for salicylates, acetaminophen or ethyl alcohol. Toxicology in urine was non-negative for amphetamines, but was otherwise negative for substances of abuse. A1c from 09/05/2017, was 5.5. Liver function from 09/05/2017, within normal limits except for AST was elevated at 72 and albumin was low at 3.2. HOSPITAL COURSE: The most prominent symptoms and behaviors while the patient was here were the patient was disorganized, withdrawn, spent the majority of his time in his room sleeping for the first 2 days of hospitalization. Target symptoms were psychosis. Treatment modalities utilized were milieu and group therapy. Zyprexa 10 mg p.o. q.h.s. was started to target psychotic symptoms. Medication was tolerated with no report of side effects and with good response. The patient has improved considerably with no signs of psychiatric symptoms or no psychiatric symptoms expressed at time of discharge. The patient reports he has improved since admission. States to be in stable condition. Feels safe to discharge and he contracts for safety. The patient's response to treatment was good. There were no adverse or unexpected results of treatment. The patient was safe throughout his stay. For the first several days, patient was not engaged in groups, and was not active in treatment. The patient spent the majority of his time sleeping in his room. However, after a couple days, patient did engage more and was appropriate with staff and other patients throughout his stay. The treatment team consensus is the patient is in stable condition and safe to discharge today. CONDITION AT DISCHARGE: Patient is in stable condition and is no longer a danger to self or others, and is not gravely disabled due to mental illness. Patient is no longer in need of inpatient level of care, and can be safely and effectively treated within the community. The patients level of risk at time of discharge is low based on the risk assessment below following this discharge summary. MSE: The patient is casually dressed and with good hygiene, and looks stated age. Patient is sitting, posture is upright, and position is relaxed. Patient appears awake, alert, and responds appropriately and reasonably during interview. Patient is engaged, relates well to interviewer, and emotional facial expression is appropriate to situation and changes appropriately with topic. Patient is cooperative, makes comfortable eye contact, and movements are voluntary, deliberate, coordinated, and smooth and even with no inappropriate movements. Patient makes laryngeal sounds effortlessly and shares conversation appropriately; pace of conversation is appropriate, and stream of talking is fluent; articulation is clear and understandable; word choice is effortless and appropriate for education level; completes sentences, occasionally pausing to think; rate and volume are appropriate for interview and setting. Patient reports mood as euthymic. Patients affect is stable with full variable range, congruent with mood, and appropriate to speech and circumstances. Patient has linear and logical thinking, with no loose associations, tangential thought, thought blocking, concrete thinking, or any other signs of formal thought disorder. Patient denies suicidal and homicidal ideation, and denies hallucinations and delusions. Patient appears to be a reliable historian with sound judgement and good insight into current condition. Patient has no apparent dysfunction in recent or remote memory noted , and no evidence of gross cognitive dysfunction noted at any point during the interview. DISCHARGE DIAGNOSES: 1. Substance induced psychotic disorder. 2. Amphetamine abuse. DISCHARGE MEDICATIONS: Zyprexa 10 mg p.o. q.h.s. #30 with no refills. Prescription was reviewed with the patient at time of discharge for accuracy. DISPOSITION: Patient left hospital independently and voluntarily with our hearing care professional and plans to follow up at [facility]. FOLLOWUP: patient resource coordinator reports the appropriate outpatient follow-up services have been established and outpatient appointments have been scheduled. The patient received written instructions with times and dates of outpatient follow-up appointments. The following follow-up recommendations were provided to the patient at discharge: Continue psychotropic medications as prescribed and attend appointments as scheduled. Report any side effects to a psychiatric outpatient provider, a primary care provider, or other health healthcare management. Address any questions or problems concerning the psychotropic medications with a psychiatric outpatient provider, a primary care provider, or other health healthcare management. Contact [facility] or [facility], or go to the nearest emergency room, if you are ever a danger to yourself/others, or unable to care for yourself. As soon as possible, establish a routine medication management treatment with a psychiatric provider, establish routine therapy appointments, and follow-up with a primary care provider. LEGAL COURSE: The patient was admitted on an for involuntary psychiatric hospitalization. During the course of the patient's stay, he was placed on a short-term certification. Short-term certification was terminated and patient discharged today voluntarily and independently. ATTITUDE AT TIME OF DISCHARGE: The patients attitude was positive at time of discharge, and patient reports looking forward to discharging today. The patient reports he feels safe to discharge, is no longer a danger to himself or others, is in stable condition, and contracts for safety. Patient states he will continue medications as prescribed, and establish medication management treatment with an outpatient provider after discharge. Patient reports he understands the information that has been provided to him, and he understands, accepts, and agrees to psychotropic medications. LABS AND STUDIES: There were no pending labs or studies at time of discharge. ADVANCED DIRECTIVES: There were no advanced directives on file, and patient was full code during hospitalization. The following psychotropic medication treatment informed consent and recommendations were provided to the patient at time of discharge. Patient reports he understands, accepts, and agrees to the information that has been provided. PSYCHOTROPIC MEDICATION TREATMENT INFORMED CONSENT and RECOMMENDATIONS: Review nature of condition, diagnosis, and prognosis. Review nature and purpose of psychotropic medication treatment. Review type of psychotropic medications being prescribed. Review risk and benefits of psychotropic medication treatment. Review probable length of time will need to take medications. Review risk and benefits of not undergoing psychotropic medication treatment. Review alternative treatments to psychotropic medications. Review psychotropic medications contraindications, side effects, and importance of reporting any side effects to a psychiatric provider, primary care provider, or other health healthcare management. Review importance of her asking a psychiatric provider or primary care provider any questions or problems concerning the psychotropic medications. Review safety plan and the importance to contact [facility] or [facility] , or go to the nearest emergency room, if ever a danger to yourself/others, or unable to care for yourself. Recommend upon discharge to establish routine medication management treatment with a psychiatric provider, establish routine therapy appointments, and follow-up with a primary care provider. Verify patient understands, accepts, and agrees to the information that has been provided. /[id number]/MODL MTDD
--- NOTE | 2017-09-06 12:49 | ASDISCHSUM ---
Discharge Information Plan Status:Homeless/Retirement Medically Cleared to Leave:09/06/2017 Discharge Date:09/06/2017 11:05 AM D/C Disposition:Other (Not listed) ADT D/C Disposition:Home, Routine, Self-Care Projected Discharge Date:09/06/2017 11:00 AM Transportation at D/C:Bus Ticket Discharge Delay Reason: Follow-Up Date:09/06/2017 Discharge Slot:1 - 8:01 am - 12:00 noon Final Diagnosis: Placement Information Referral Type:Psychiatric Hospital or Unit Referral ID:[id number] Provider Name: Address 1: Phone Number: Address 2: Fax Number: City: Selection Factors: State: Patient Contact Information Contact Name:JIMBOBenito Relationship: Address: Home Phone: Work Phone: City: Alternate Phone: [facility] Code: Email: Financial Information Financial Class:HMO and PPO Plans Primary Plan Desc:ACCESS BEHAVIORAL CARE Primary Plan Number:[id number] Secondary Plan Desc: Secondary Plan Number: Assessment Information TLC Progress Note Notes Note: Notes: Spoke with Aristeo at [facility] who confirmed pt has [place] Access Medicaid. [facility] will contact [facility] when pt is med cleared. Date Signed: 08/31/2017 07:06 PM Electronically Signed By:Jael Miner TLC Progress Note Notes Note: Notes: [facility] called [facility]. Pt. is medically cleared and ready for MH evaluation 12 hrs. post required time span after positive utox for amphetamines. Date Signed: 09/01/2017 08:11 AM Electronically Signed By:Betsy Thomas TLC Evaluation TLC Evaluation - Basic Information Evaluation Start Date and 09/01/2017 02:00 PM Time Hospital Status Answers: M1 Hold 72-hr M1 Hold Start Date 08/31/2017 05:17 PM and Time Patient statement Notes: "Trying to get away from people...pointing laser pointers at my crotch". Pt reported that his persuers were child molesters. 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 Narrative Notes: Pt is a 41 YO male, never , no children, unemployed Per [facility] report the PT called 911 yesterday reporting suicidal thoughts; Pt is a very poor historian, primarily tue to lose associations and his preoccupation with paranoid and grandiose delusions. Pt says he came to [place] 1 week ago from [place] "trying to get away from people" who pt says " were pointing laser pointers at my crotch". Pt reported that his pursuers were child molesters. 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 Pt says he's not sleeping very well b/c "They're trying to keep me awake using x-band radar" and says "they" follow pt around in "in an SUV like spaceship". Pt says he's anti-christain, "I don't do the Festus thing. I'm anti-Cy." Per ED report HISTORY OF PRESENT ILLNESS: Patient arrives on M1 hold by police. He told them that he was hearing voices telling them that he is the Governor, and the police radios block voices. He was suicidal to the police but denies it to me. He told him he was going to"set himself on fire."The patient to me continues to talk about aliens chasing him and voices in his head chasing him around. The patient is rambling thoughts and is delusional about hearing voices and that he is the Governor. Denies suicidal or homicidal ideation. The pts urine toxicology positive for amphetamines. Per M1 Hold R/O responded to gas station at [place]/[employer] for male (Remington) who was suicidal, wanted to set himself on fire. Remington stated that he hears multiple voices and that he is the governor. Remington stated that the police radios block the voices in his head. Remington stated that he is suicidal and needs help. Diagnosis History Notes: SCHIZOPHRENIA 295.90 (F20.9) - From [facility] 2016 Prior suicide attempts Notes: PT reports 2 or 3 attempts Prior hospitalizations Notes: [facility] 2016 (Observation Area for 3 days) [facility] October 2016 [facility] Responses Notes: Per [facility] records from 2016 stay. Pt was given 20mg of zyprexa a day and stabilized. History of violence Notes: None reported Therapist: None Psychiatrist: None Medications (name, dosage, route, freq uency) Notes: Pt reported he is has been perscribed ritalin and celexa but doestn' have current perscriptions Per [facility] records from 2016 stay. Pt was given 20mg of zyprexa a day and stabilized. Allergies/Reaction Notes: No Known Allergies Sleep Notes: Poor Appetite Notes: Poor Medical/Surgical history Notes: None reported Substance use history (frequency, intensity, his tory, duration) Notes: Unable to assess substance use due to pt's psychosis - previous [facility] admission was negative for cocaine or amphetamine but was positive for etoh; previous [facility] admission had pt possitive for cocaine; current [facility] ED visit pt is positive for Amphetamine in utox; Family composition Notes: None reported; I wasn't raised by anyone; pt denied having any siblings Family psychiatric/substance abuse history Notes: ETOH Abuse on mothers side, drank while . 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 Abuse concerns Answers: Past Victim Marital status/children Notes: Never with no children Living situation Notes: Transient / Homeless Sexual history/orientation Notes: Heterosexual not sexually active Peer support/family strengths Notes: None reported, pt has had successful treatment with zyprexa. Education level/history Notes: Pt repored he never attended school. Work history Notes: Unemployed Notes: None reported Legal Notes: None reported Faith/Spiritual Notes: Pt denied being spiritual or religous Leisure Notes: I like BBQ Collateral Notes: Obtained from [facility] report (See Fax attached), ED records, and M1 Hold TLC Evaluation - Mental Status Exam Appearance: Answers: Unkempt Disheveled Eye Contact: Answers: Intermittent Mood: Answers: Depressed Affect: Answers: Appropriate Blunted Calm Distracted Fearful Behavior: Answers: Appropriate Cooperative Speech: Answers: Relevant Irrelevant Illogical Clear Coherent Dramatic Excessive Flight of Ideas Grandiose Loose Associations Nonsensical Rambling Thought Process: Answers: Disorganized Disoriented Distracted Flight of Ideas Loose Associations Paranoid Insight: Answers: Poor Judgement: Answers: Poor Manic Signs/Symptoms Answers: Distractibility Impulsivity Mood Swings Pressured Speech Racing Thoughts Depression Answers: Flat Affect Signs/Symptoms: Hopelessness Withdrawn Hallucinations: Answers: Auditory Command Delusions: Answers: Being Controlled Erotic/Stalking Grandiose Ideas of Reference Paranoid Ideation Persecution Faith/Spiritual Current Stage of Change Answers: Precontemplation Pt reported to have Answers: Yes suicidal/self-injuring ideation/behavior? Pt reported to be making Answers: Yes suicidal/self-injuring threats? Pt reported to have Answers: No aggression/assault ideation/behavior? Pt reported to be making Answers: No aggression/assault threats? Ideation/behavior is Answers: Yes chronic? Patient has a specific Answers: Yes plan? Pt has access to means to Answers: Yes execute the plan? Ideation involves Answers: Yes serious/lethal intent? Ideation has Answers: Yes delusional/hallucinatory content? History of Answers: No aggressive/assaultive ideation, behavior, or threats? History of serious Answers: No physical harm to self/others while in treatment setting? TLC Evaluation - Suicide/Homicide Risk Suicide Risk Factors: Answers: Agitation Alcohol/Heavy Drug Use Command Hallucinations Impulsivity Lack/Loss of Employment Psychotic Disorder Schizophrenia Single Unstable Living Situation Homicide/violence risk Answers: Command Hallucinations factors: Heavy Drug Use Paranoid Ideation Current Suicidal Answers: Yes Ideation? Current Suicidal Ideation Answers: Yes in the Past 48 Hours? Current Suicidal Ideation Answers: Yes in the Past Month? Suicide External Answers: None Protective Factors: Ranking of patient's Answers: Imminent suicidal risk: Ranking of patient's Answers: Low homicidal risk: TLC Evaluation - Wrap-up BDI Total Score: Unable to complete BSS Total Score: Unable to complete AXIS I Diagnosis (include DSM-V and ICD-10 codes), must also be entered in [employer], which is the source of truth. Notes: SCHIZOPHRENIA 295.90 (F20.9) Evaluation End Date and 09/01/2017 03:33 PM Time (HH:): Date Signed: 09/01/2017 03:38 PM Electronically Signed By:Tod Black TLC Discharge Disposition TLC Discharge Disposition Disposition: Answers: Admit Discharge Concerns/Recommendations: Notes: In consultation with [facility] ED physician, Jordan Valencia MD, and on-call psychiatrist, Jovon Jorge MD, both concurred that pt appeared to meet 27-65 criteria requiring psychiatric hospitalization as pt appears does appear to be an imminent risk of harm to self and is gravely disabled due to a mental illness condition. Was patient given the Answers: Yes Inpatient Behavioral Health Prohibited Belongings List while in the ED? For inpatient Jovon Jorge MD admission, the following psychiatrist agreed to accept patient for admission to Behavioral Health ([facility] Date and time M1 hold 08/31/2017 05:17 PM vacated (time format is :mm): Type of Hold: Answers: M1/72-hour Hold Hold initiated by: Answers: Police Date Signed: 09/01/2017 03:05 PM Electronically Signed By:Tod Black Behavioral Health Master Treatment Plan Master Treatment Plan Master Treatment Plan Answers: Impaired Reality for: Date: 09/02/2017 Diagnosis on Admission: Schizophrenia Expected length of stay: 3-5 Days Reason for admission: Notes: 41 year old male. Per [facility] report the pt. called 911 yesterday reporting suicidal thoughts. Patient's stated presenting problems: Notes: Don't know. Having mental problems Patient's goals for treatment: Notes: I don't know Patient's strengths: Notes: I don't know Identify supports outside of hospital: Notes: No Discharge criteria: Notes: Psychotic symptoms will be reduced or eliminated with return to baseline functioning in affect, thinking and behavior prior to discharge Initial disposition plan/considerations: Notes: I don't know. Master Treatment Plan Required Signatures Psychiatrist signature: Answers: Angel Ventura MD: RN on-shift signature: Answers: RN: Patient signature: Answers: Patient: Date Signed: 09/02/2017 01:59 PM Electronically Signed By:Guerda Bridges [facility] CM Progress Note CM Note CM Note Notes: Pt. was laying in bed with his eyes open when CC approached. Pt. stated "I don't know" when asked how he was doing. Pt. stated he keeps getting woken up by staff. Pt. stated "what are you stupid?" to CC. When CC asked about SI, pt. stated "I don't know you just woke me up". CC ended conversation due to pt. demeanor. Pt. presents as disorganized and malodorous. Staff report pt. sleeping at least 12 hours and being medication compliant. Date Signed: 09/03/2017 01:44 PM Electronically Signed By:Guerda Bridges [facility] Discharge Planning Note Notes Note: Notes: CC tried to walk client over to [facility] for intake appointment/follow up. Client refused to go or participate with [facility]. Client noted, "I just want to go to the retirement." CC already called for client ([facility]) as well as printed out a bus map/list and provide a bus ticket. Client was escalated off of the unit and security was able to re-direct client, etc. and get him to the nearest bus stop in order to get to the retirement. Date Signed: 09/06/2017 12:18 PM Electronically Signed By:Temo Morrison Intervention Information
== END 2017-09-06 11:05 | disposition home or self-care (01) | DRG 897 ==
LOC: EEVIPCON 18:10 → BBEH 09-01 18:08
PROVIDERS: ADMIT Psychiatry & Neurology Psychiatry; ATTEND Psychiatry & Neurology Psychiatry
DX: F15.151 Other stimulant abuse with stimulant-induced psychotic disorder with hallucinations (principal); F17.200 Nicotine dependence, unspecified, uncomplicated; Z59.0 Homelessness; E87.6 Hypokalemia
CPT/HCPCS: 80305; G0480